=== PATIENT | female | born 1980 | race Caucasian/White ===

== ENCOUNTER 2017-12-07 09:26 | Outpatient (CLI) | payer MEDICARE | END 2017-12-07 11:26 | disposition home or self-care (01) | LOC: ECT 09:26 | DX: F33.2 Major depressive disorder, recurrent severe without psychotic features (principal); F81.9 Developmental disorder of scholastic skills, unspecified; F34.1 Dysthymic disorder; F41.9 Anxiety disorder, unspecified; Z88.8 Allergy status to other drugs, medicaments and biological substances; R45.851 Suicidal ideations ==